=== PATIENT | male | born 1985 | race Caucasian/White ===

== ENCOUNTER 2024-03-26 02:20 | Emergency (ER) | payer SELFPAY ==
[~2024-03-26] VITALS: Ht 177.8 cm; Wt 104.3 kg
[2024-03-26 02:35] VITALS: BP 120/70; PULSE 107; RESP 21; O2SAT 93
[2024-03-26 02:48] VITALS: BP 120/70; PULSE 107; RESP 21; O2SAT 93
== END 2024-03-26 03:06 ==
LOC: MED 02:20
DX: F10.129 Alcohol abuse with intoxication, unspecified (principal); V43.52XA Car driver injured in collision with other type car in traffic accident, initial encounter; Y93.89 Activity, other specified; Y92.89 Other specified places as the place of occurrence of the external cause; Y99.8 Other external cause status
CPT/HCPCS: 99283